=== PATIENT | female | born 1995 | race Caucasian/White ===

== ENCOUNTER 2016-11-30 19:08 | Emergency (ER) | payer MEDICAID ==
[~2016-11-30] VITALS: Ht 154.9 cm; Wt 86.1 kg
[~2016-11-30 19:08] MED LIST: ALBUTEROL INHALER; ONDA4TAB7 PO; OXYC-223 PO
[2016-11-30] MEDS ORDERED: ALBUTEROL SULFATE 2.5 MG/3 ML ONE (20:13)
[2016-11-30 21:26] VITALS: BP 128/89
== END 2016-11-30 21:27 | disposition home or self-care (01) ==
LOC: ED 20:50
DX: J45.31 Mild persistent asthma with (acute) exacerbation (principal); J01.00 Acute maxillary sinusitis, unspecified
CPT/HCPCS: 71020; 93005; 94640; 99284; J7512

== ENCOUNTER 2016-12-20 21:56 | Emergency (ER) | payer MEDICAID ==
[~2016-12-20] VITALS: Ht 154.9 cm; Wt 87.1 kg
[2016-12-20 22:01] VITALS: BP 133/85
[2016-12-20 23:25] LABS: HCG UR OBC PASS
[2016-12-21] MEDS ORDERED: metroNIDAZOLE 500 MG TABLET PO ONE
[2016-12-21] MEDS ORDERED: metroNIDAZOLE 500 MG TABLET ONE (00:03)
== END 2016-12-21 00:35 | disposition home or self-care (01) ==
LOC: ED 23:58
DX: N30.01 Acute cystitis with hematuria (principal); A59.01 Trichomonal vulvovaginitis; J45.909 Unspecified asthma, uncomplicated; Z90.49 Acquired absence of other specified parts of digestive tract
CPT/HCPCS: 81001; 81025; 87077; 87086; 87186; 99284

== ENCOUNTER 2017-04-14 17:36 | Emergency (ER) | payer MEDICAID ==
[~2017-04-14 17:36] MED LIST changes: -OXYC-223 PO; +OXYC-306 PO
== END 2017-04-14 17:43 | disposition home or self-care (01) ==
LOC: ED 17:37
DX: K02.9 Dental caries, unspecified (principal); J45.909 Unspecified asthma, uncomplicated
CPT/HCPCS: 99283

== ENCOUNTER 2017-04-14 17:39 | Emergency (ER) | payer MEDICAID ==
[~2017-04-14] VITALS: Ht 157.5 cm; Wt 91.9 kg
[2017-04-14 17:40] VITALS: BP 135/84
== END 2017-04-14 18:02 | disposition home or self-care (01) ==
LOC: ED 17:56
DX: K08.89 Other specified disorders of teeth and supporting structures (principal); Z53.21 Procedure and treatment not carried out due to patient leaving prior to being seen by health care provider
CPT/HCPCS: 99283

== ENCOUNTER 2017-12-17 13:56 | Emergency (ER) | payer MEDICAID ==
[~2017-12-17] VITALS: Ht 154.9 cm; Wt 86.4 kg
[2017-12-17 14:01] VITALS: BP 109/68
== END 2017-12-17 15:30 | disposition home or self-care (01) ==
LOC: ED 15:24
DX: J20.8 Acute bronchitis due to other specified organisms (principal); B96.89 Other specified bacterial agents as the cause of diseases classified elsewhere
CPT/HCPCS: 71046; 93005; 99284

== ENCOUNTER 2018-01-15 16:27 | Emergency (ER) | payer MEDICAID ==
[~2018-01-15] VITALS: Ht 154.9 cm; Wt 87.0 kg
[2018-01-15 16:32] VITALS: BP 122/85
== END 2018-01-15 17:53 | disposition left against medical advice (07) ==
LOC: ED 17:47
DX: K08.89 Other specified disorders of teeth and supporting structures (principal)
CPT/HCPCS: 99281

== ENCOUNTER 2018-11-14 12:08 | Emergency (ER) | payer MEDICAID ==
[~2018-11-14] VITALS: Ht 154.9 cm; Wt 92.3 kg
[2018-11-14 12:11] VITALS: BP 127/79
== END 2018-11-14 12:33 | disposition home or self-care (01) ==
LOC: ED 12:26
DX: K02.9 Dental caries, unspecified (principal); K05.00 Acute gingivitis, plaque induced; K08.89 Other specified disorders of teeth and supporting structures; J45.909 Unspecified asthma, uncomplicated
CPT/HCPCS: 99283